=== PATIENT | male | born 1955 | race Caucasian/White ===

== ENCOUNTER → 2016-11-16 | Outpatient (CLI) | payer BC, OTHER ==
--- NOTE | ~2016-11-16 | PFR/MVV ---
[facility] [place] [address] PULMONARY FUNCTION MVV/REPORT Name: CRISTAL DURHAM Room #: REG [facility]#: [id number] Admission: 11/16/16 Attend Phys: Hieu Munoz MD Discharge: Date of : 57 Report #: [id number] THIS REPORT FOR: //name// COPIES FOR: AGE: 61 SEX/RACE: M/C >> SPIROMETRY: (BTPS) Height: 71 in cm Weight: 208 lbs kg Exam Date: 11/16/16 PRE-RX POST-RX PRED BEST %PRED BEST %PRED %CHG FVC LITERS . 4.62 . 5.04 . 109 . 5.38 . 116 . 7 FEV1 LITERS . 3.70 . 3.56 . 96 . 3.69 . 100 . 4 FEV1/FVC % . 80 . 71 . 89 . 69 . 86 . -3 BDR92-32% L/Sec . 3.73 . 2.31 . 62 . 1.95 . 52 . -16 PEF L/SEC . 8.85 . 7.74 . 87 . 8.22 . 93 . 6 FEF50/FIF50 UNITLESS . <1.00 . 1.92 . . 1.70 . . -12 MVV L/Min . 144 . 109 . 76 f 1/Min . . 115 . >> LUNG VOLUMES: (BTPS) PRE-RX POST-RX PRED AVG %PRED AVG %PRED %CHG VC Liters . 4.62 . 5.04 . 109 . . . TLC Liters . 6.90 . 10.12 . 147 . . . RV Liters . 2.44 . 5.08 . 208 . . . RV/TLC % . 37 . 50 . 135 . . . FRC PL Liters . 3.68 . 6.12 . 166 . . . FRC N2 Liters . 3.68 . . . . . ERV Liters . . 1.04 . . . . IC Liters . . 3.57 . . . . >> DIFFUSION: DLCO ml/Min/mmHg . 25.7 . 22.4 . 87 . . . DL Esequiel ml/Min/mmHg . 25.7 . 22.4 . 87 . . . DLCO/VA ml/Min/mmHg . 3.76 . 3.59 . 96 . . . VA Liters . . 6.22 . . . . [facility] [address] [place] [address] PULMONARY FUNCTION MVV/REPORT Name: CRISTAL DURHAM Room #: [facility]#: [id number] Admission: 11/16/16 Attend Phys: Hieu Munoz MD Discharge: Date of : 57 Report #: [id number] COMMENTS: COMMENTS: >> RESISTANCE: PRE-RX PRED AVG %PRED Raw Total cmH20/L/Sec . . 2.89 . Raw Insp cmH20/L/Sec . . 1.38 . Raw Exp cmH20/L/Sec . . 2.05 . Raw cmH20/L/Sec . 1.21 . 1.85 . 153 Gaw L/Sec/cmH20 . 0.883 . 0.541 . 61 sRaw cmH20 Sec . 4.45 . 11.47 . 257 sGaw l/cmH20 Sec . .0225 . 0.087 . 39 Vtq Liters . . 6.20 . # = OUTSIDE 95% CONFIDENCE INTERVAL CALIBRATION: PRED: 3.00 ACTUAL: EXP 3.01 INSP 3.02 [facility]-[id number] [facility]-- [id number] >> INTERPRETATION/IMPRESSION: CC: [facility] physician/PCP Hieu Munoz MD Pulmonary consultation revealed mild outflow obstruction. Lung volumes are increased with a total lung capacity of 147% predicted. Diffusion capacity is normal. Flow volume loop is consistent with mild outflow obstruction. Inspiratory segment of the flow volume loop suggests possible variable extrathoracic obstruction. Clinical correlation is recommended. IMPRESSION: 1. Mild obstructive ventilatory defect. 2. Questionable abnormal inspiratory segment of the flow volume loops suggestive of possible extrathoracic obstruction. Clinical correlation is suggested. <ELECTRONICALLY SIGNED> By: Ethan Forrester MD 12/08/16 1650 Ethan Forrester MD /nt
== END ==
LOC: PUL 10:18
DX: R06.00 Dyspnea, unspecified (principal); R06.2 Wheezing; F17.200 Nicotine dependence, unspecified, uncomplicated